=== PATIENT | male | born 1960 | race Caucasian/White ===

== ENCOUNTER 2019-04-27 12:06 | Day surgery (SDC) | payer OTHER ==
[~2019-04-27] VITALS: Ht 200.7 cm; Wt 98.0 kg
[~2019-04-27 12:06] MED LIST: B Complex-Foli1 EACH PO; IBUP600 PO; OMEPRAZOLE20 MG PO; Omega 3 1,0001 EACH PO
--- NOTE | 2019-04-27 13:54 | NUR ---
04/27/19 7274 Yvonne Montes PT UPDATED REGARDING THE DELAY IN HIS CASE DUE TO DR STERN GOING TO THE [facility] FOR AN EMERGENT PROCEDURE. PT IS RESTING NOW WITH EYES CLOSED. WARM BLANKETS PROVIDED. CALL LIGHT IN REACH.
[2019-05-11] MEDS ORDERED: Vitamin D2000 UNIT PO (12:28)
[2019-05-11] MEDS ORDERED: POTA10T PO (12:28)
[2019-05-11] MEDS ORDERED: GLUCOSAMINE PO (12:31)
== END 2019-04-27 15:35 | disposition home or self-care (01) ==
LOC: ORSCSDS 12:06
DX: Z86.010 Personal history of colon polyps (principal); Z53.9 Procedure and treatment not carried out, unspecified reason
CPT/HCPCS: J2704; J7120

== ENCOUNTER 2019-04-29 06:06 | Day surgery (SDC) | payer OTHER ==
[~2019-04-29] VITALS: Ht 170.2 cm; Wt 100.0 kg
[2019-04-29] MEDS ORDERED: ACET500 PO (06:57)
--- NOTE | 2019-04-29 07:02 | NUR ---
04/29/19 0702 Tricia Lubin CALL LIGHT WITHIN REACH.
--- NOTE | 2019-04-29 08:50 | NUR ---
04/29/19 0850 Joyce Brannon GEOVANNA PO WELL. NO C/O PAIN OR NAUSEA T/O RECOVERY. ICE AND SLING IN PLACE. RX FOR TRAMADOL GIVEN WITH INSTRUCTIONS FOR USE
== END 2019-04-29 08:35 | disposition home or self-care (01) ==
LOC: ORSCSDS 06:06
PROVIDERS: Orthopaedic Surgery
PROC: 01N50ZZ Release Median Nerve, Open Approach (ICD-10-PCS; principal; 2019-04-29 07:30)
DX: G56.01 Carpal tunnel syndrome, right upper limb (principal); K21.9 Gastro-esophageal reflux disease without esophagitis; Z79.899 Other long term (current) drug therapy
CPT/HCPCS: J2250; J2704; J3010; J7120

== ENCOUNTER 2019-05-12 11:16 | Day surgery (SDC) | payer OTHER ==
[~2019-05-12] VITALS: Ht 170.2 cm; Wt 103.0 kg
[~2019-05-12 11:16] MED LIST changes: +ACET500 PO; +GLUCOSAMINE PO; +POTA10T PO; +Vitamin D2000 UNIT PO
--- NOTE | 2019-05-12 12:05 | NUR ---
Ambulatory in Day Surgery. Patient states colon prep results clear. History, Chart, Medications and Allergies reviewed before start of procedure. Lungs clear T/O to Auscultation. Patient confirms NPO status and agrees with scheduled surgery. Patient States Post-Procedure ride home has been arranged. Pre-Op teaching done. Pt verbalizes understanding.
--- NOTE | 2019-05-12 13:02 | NUR ---
05/12/19 1302 YASMIN HALL History, Chart, Medications and Allergies reviewed before start of procedure.3-LEAD EKG REVIEWED WITH PHYSICIAN PRIOR TO START OF PROCEDURE.O2 VIA N/C INTACT THROUGHOUT SEDATION/PROCEDURE. MONITOR INTACT WITH CONTINUOUS PULSE OXIMETRY AND INTERMITTENT BP.PATIENT DETERMINED TO BE ASA APPROPRIATE FOR PROPOFOL SEDATION PRIOR TO START OF PROCEDURE BY .
--- NOTE | 2019-05-12 14:13 | NUR ---
PT TO STEP. DENIES PAIN OR NAUSEA. WATER GIVEN TO PT.
--- NOTE | 2019-05-12 14:34 | NUR ---
WRITTEN AND VERBAL D/C INSTUCTIONS GIVEN TO PT WITH STATED UNDERSTANDING.
== END 2019-05-12 14:49 | disposition home or self-care (01) ==
LOC: ORSCMMR 11:16 → ORD 13:00 → ORSCMMR 14:49
PROVIDERS: Internal Medicine Gastroenterology
PROC: 0DBN8ZX Excision of Sigmoid Colon, Via Natural or Artificial Opening Endoscopic, Diagnostic (ICD-10-PCS; principal; 2019-05-12 13:00)
DX: Z12.11 Encounter for screening for malignant neoplasm of colon (principal); Z86.010 Personal history of colon polyps; D12.5 Benign neoplasm of sigmoid colon; K57.30 Diverticulosis of large intestine without perforation or abscess without bleeding; K64.4 Residual hemorrhoidal skin tags; E66.01 Morbid (severe) obesity due to excess calories; Z68.35 Body mass index [BMI] 35.0-35.9, adult
CPT/HCPCS: 88305; J2704; J7120